=== PATIENT | female | born 1985 | race Two or more races ===

== ENCOUNTER 2020-05-07 05:45 | Day surgery (SDC) | payer OTHER ==
[~2020-05-07 05:45] MED LIST: B12 ACTIVE1000 MCG IJ; FOLIC ACID20 MG PO; NECON 0.5-35-21 EACH PO
== END 2020-05-07 11:26 | disposition home or self-care (01) ==
LOC: CIR.AMB 05:45
PROVIDERS: ATTEND Surgery
DX: K80.10 Calculus of gallbladder with chronic cholecystitis without obstruction (principal); Z20.828 Contact with and (suspected) exposure to other viral communicable diseases